=== PATIENT | female | born 1945 | race Caucasian/White ===

== ENCOUNTER 2018-12-01 12:50 | Day surgery (SDC) | payer MEDICARE, BC ==
[~2018-12-01 12:50] MED LIST: PROPOFOL 500 MG/50 ML EMU IV ONE
[2018-12-01 15:11] VITALS: BP 149/70; PULSE 66; RESP 18; TEMP 97.6; O2SAT 98
== END 2018-12-01 15:34 | disposition home or self-care (01) | DRG 951 ==
LOC: SURG 12:50
PROVIDERS: ATTEND Surgery
DX: Z12.11 Encounter for screening for malignant neoplasm of colon (principal); K57.32 Diverticulitis of large intestine without perforation or abscess without bleeding; Z15.09 Genetic susceptibility to other malignant neoplasm; Z80.0 Family history of malignant neoplasm of digestive organs
CPT/HCPCS: J2001; J2704